=== PATIENT | female | born 2005 | race Hispanic/Latino ===

== ENCOUNTER 2024-03-12 09:35 | Emergency (ER) | payer OTHER, BC ==
[~2024-03-12] VITALS: Ht 157.5 cm; Wt 67.6 kg
[2024-03-12] MEDS ORDERED: TRAZODONE HCL50 MG NG (09:55)
[2024-03-12] MEDS ORDERED: 24 HOUR ALLERG9.9 ML INH (09:56)
[2024-03-12] MEDS ORDERED: ondansetron HCL 4 MG TAB PO ONE (10:00)
[2024-03-12 10:58] LABS: BILIRUBIN, URINE NEGATIVE (negative); BLOOD/HGB, URINE NEGATIVE (Negative); KETONE, URINE NEGATIVE (Negative); LEUK ESTERASE, URINE NEGATIVE (negative); NITRITE, URINE NEGATIVE (negative)
[2024-03-12] MEDS ORDERED: PRENATE ELITE1 EAC2 PO (11:35)
[2024-03-12 11:53] VITALS: BP 137/92
== END 2024-03-12 11:54 | disposition home or self-care (01) ==
LOC: ED 09:35
PROVIDERS: Emergency Medicine
DX: R11.0 Nausea (principal); Z32.01 Encounter for pregnancy test, result positive; Z79.899 Other long term (current) drug therapy
CPT/HCPCS: 81003; 84703; 99283

== ENCOUNTER 2024-05-28 21:21 | Emergency (ER) | payer BC, OTHER ==
[~2024-05-28] VITALS: Ht 157.5 cm; Wt 69.0 kg
[~2024-05-28 21:21] MED LIST: 24 HOUR ALLERG9.9 ML INH; PRENATE ELITE1 EAC2 PO; TRAZODONE HCL50 MG NG
[2024-05-28] MEDS ORDERED: ALBUTEROL/IPRATROPIUM 3 ML NEB INH ONE (21:45)
[2024-05-28] MEDS ORDERED: INHALER, ASSIST DEVICES 1 EACH SPACER MISC ONE (22:15)
[2024-05-28] MEDS ORDERED: ALBUTEROL SULFATE 8 GM HOME.PACK INH ONE (22:15)
[2024-05-28 22:20] VITALS: BP 124/75
--- NOTE | 2024-05-29 13:46 | EKG ---
[facility] [address] [place] [address] Signed Normal sinus rhythm with sinus arrhythmia Normal ECG No previous ECGs available Confirmed by Sunita Bejarano DO ([id number]) on 05/29/2024 1:46:00 PM Electronically Signed By: SUNITA BEJARANO DO 05/29/24 1346 PATIENT NAME: CHIP JAMES Electrocardiogram DATE OF : [birth year] PHYSICIAN: SUNITA BEJARANO DO REPORT #: [id number] REPORT IS CONFIDENTIAL AND NOT TO BE RELEASED WITHOUT AUTHORIZATION
== END 2024-05-28 22:20 | disposition home or self-care (01) ==
LOC: ED 21:21
DX: O99.512 Diseases of the respiratory system complicating pregnancy, second trimester (principal); J45.909 Unspecified asthma, uncomplicated; Z3A.15 15 weeks gestation of pregnancy; Z79.899 Other long term (current) drug therapy
CPT/HCPCS: 93005; 93010; 94640; 99284

== ENCOUNTER 2024-11-09 11:38 | Inpatient (IN) | payer BC, OTHER ==
[2024-11-09] MEDS ORDERED: LACTATED RINGER'S 1,000 ML IV PRN (12:00)
[2024-11-09] MEDS ORDERED: TERBUTALINE SULFATE 1 MG/ML AMP SUB-Q PRN (12:00)
[2024-11-09] MEDS ORDERED: MAGNESIUM HYDROXIDE/AL HYDROX 30 ML CUP PO PRN (12:00)
[2024-11-09] MEDS ORDERED: OXYTOCIN/0.9 % SODIUM CHLORIDE 30 UNITS/500 ML BAG IV SCH ×2 (12:00→17:00)
[2024-11-09] MEDS ORDERED: CALCIUM CARBONATE 500 MG CHEW PO PRN (12:00)
[2024-11-09] MEDS ORDERED: LIDOCAINE HCL 1% 30 ML SDV INJ PRN (12:00)
[2024-11-09 12:17] LABS: MCH 25.9 PG (25.6-32.2); MCHC 32.1 g/dL (32.2-35.5); MCV 80.7 fL (79.4-94.8); RBC 4.51 M/uL (3.93-5.22)
[2024-11-09 12:24] VITALS: BP 118/73
[2024-11-09 12:32] LABS: AMPHETAMINES, URINE NEGATIVE (NEGATIVE); BARBITURATES, URINE NEGATIVE (NEGATIVE); BENZODIAZEPINE, URINE NEGATIVE (NEGATIVE); CANNABINOID, URINE NEGATIVE (NEGATIVE); COCAINE, URINE NEGATIVE (NEGATIVE); ECSTASY, URINE NEGATIVE (NEGATIVE); FENTANYL, URINE NEGATIVE (NEGATIVE); METHADONE, URINE NEGATIVE (NEGATIVE); OPIATES, URINE NEGATIVE (NEGATIVE); OXYCODONE, URINE NEGATIVE (NEGATIVE); PHENCYCLIDINE, URINE NEGATIVE (NEGATIVE)
[2024-11-09] MEDS ORDERED: ROPIVACAINE 0.2% 200 ML BAG ONE (12:43)
[2024-11-09] MEDS ORDERED: fentaNYL citrate 100 MCG/2 ML VIAL ONE (12:43)
[2024-11-09 12:51] LABS: ABO O
[2024-11-09 12:52] LABS: ANTIBODY SCREEN NEGATIVE; RH POSITIVE
[2024-11-09] MEDS ORDERED: ePHEDrine KIT FOR FBC IV ONE (13:14)
[2024-11-09] MEDS ORDERED: ROPIVACAINE 0.2% 200 ML BAG EPIDURAL SCH (13:30)
[2024-11-09] MEDS ORDERED: ePHEDrine sulfate 5 MG/ML SYRINGE IV PRN (13:30)
[2024-11-09] MEDS ORDERED: LACTATED RINGER'S 500 ML IV PRN (13:30)
[2024-11-09] MEDS ORDERED: LACTATED RINGER'S 2,000 ML IV ONE (13:30)
[2024-11-09] MEDS ORDERED: OXYTOCIN/0.9 % SODIUM CHLORIDE 500 ML IV SCH (17:00)
[2024-11-10] MEDS ORDERED: OXYTOCIN/0.9 % SODIUM CHLORIDE 500 ML IV SCH (03:30)
[2024-11-10] MEDS ORDERED: HYDROCORTISONE ACETATE 25 MG SUPP PR PRN (03:30)
[2024-11-10] MEDS ORDERED: CALCIUM CARBONATE 500 MG CHEW PO PRN (03:30)
[2024-11-10] MEDS ORDERED: MAGNESIUM HYDROXIDE/AL HYDROX 30 ML CUP PO PRN (03:30)
[2024-11-10] MEDS ORDERED: BENZOCAINE 60 ML AEROSOL TOP PRN (03:30)
[2024-11-10] MEDS ORDERED: MAGNESIUM HYDROXIDE 30 ML UDC PO PRN (03:30)
[2024-11-10] MEDS ORDERED: HYDROCODONE/ACETA 5/325 TAB PO PRN (03:30)
[2024-11-10] MEDS ORDERED: LIDOCAINE 2% VISCOUS 6 ML SYR TOP ONE ×2 (03:30)
[2024-11-10] MEDS ORDERED: WITCH HAZEL/GLYCERIN 1 EA PAD TOP PRN (03:30)
[2024-11-10] MEDS ORDERED: IBUPROFEN 600 MG TAB PO SCH ×2 (08:00→18:00)
[2024-11-10] MEDS ORDERED: ACETAMINOPHEN 325 MG TAB PO SCH ×2 (08:00→15:00)
[2024-11-10] MEDS ORDERED: SENNOSIDES/DOCUSATE 1 EA TAB PO SCH (09:00)
== END 2024-11-11 12:05 | disposition home or self-care (01) | DRG 807 ==
LOC: FBCO → FBC 11:55 → FBCO 11:55 → FBC 11-11 12:05 → FBCO 11-14 10:10
PROVIDERS: ADMIT Obstetrics & Gynecology; ATTEND Obstetrics & Gynecology
PROC: 10E0XZZ Delivery of Products of Conception, External Approach (ICD-10-PCS; principal; 2024-11-09)
PROC: 0KQM0ZZ Repair Perineum Muscle, Open Approach (ICD-10-PCS; 2024-11-09)
PROC: 3E0R3BZ Introduction of Anesthetic Agent into Spinal Canal, Percutaneous Approach (ICD-10-PCS; 2024-11-09)
PROC: 00HU33Z Insertion of Infusion Device into Spinal Canal, Percutaneous Approach (ICD-10-PCS; 2024-11-09)
DX: O70.1 Second degree perineal laceration during delivery (principal); Z37.0 Single live birth; Z3A.39 39 weeks gestation of pregnancy
CPT/HCPCS: 36415; 80307; 85027; 86850; 86900; 86901; A9270; J2795; J3010; J7121